=== PATIENT | female | born 1985 | race African-American/Black ===

== ENCOUNTER 2017-03-07 19:09 | Emergency (ER) | payer SELFPAY ==
[~2017-03-07] VITALS: Ht 170.2 cm; Wt 56.0 kg
[2017-03-07 23:30] VITALS: BP 126/77
== END 2017-03-08 11:48 | disposition home or self-care (01) ==
LOC: ER 19:09
DX: L03.211 Cellulitis of face (principal); Z98.890 Other specified postprocedural states
CPT/HCPCS: 99283

== ENCOUNTER 2017-05-16 16:56 | Emergency (ER) | payer BC ==
[~2017-05-16] VITALS: Ht 170.2 cm; Wt 59.0 kg
[2017-05-16] MEDS ORDERED: KETOROLAC 60MG/2ML VIAL IM ONE (20:00)
[2017-05-16 21:00] VITALS: BP 122/80
== END 2017-05-16 21:10 | disposition home or self-care (01) ==
LOC: ER 19:57
DX: M94.0 Chondrocostal junction syndrome [Tietze] (principal); Z98.890 Other specified postprocedural states
CPT/HCPCS: 71020; 81025; 93005; 96372; 99284; J1885

== ENCOUNTER 2019-12-28 16:27 | Emergency (ER) | payer BC, OTHER ==
[~2019-12-28] VITALS: Ht 167.6 cm; Wt 75.0 kg
[2019-12-28 17:03] VITALS: BP 140/74
[2019-12-28 21:30] LABS: CLARITY URINE CLOUDY (CLEAR); COLOR URINE DARK YELLOW (YELLOW); KETONES URINE 2+ (NEGATIVE); LEUKOCYTE ESTERASE URINE NEGATIVE (NEGATIVE); NITRITE URINE NEGATIVE (NEGATIVE); OCCULT BLOOD URINE 3+ (NEGATIVE); PROTEIN URINE TRACE (NEGATIVE); SPECIFIC GRAVITY URINE 1.032 (1.005-1.030)
== END 2019-12-28 23:23 | disposition home or self-care (01) ==
LOC: ER 16:27
DX: J06.9 Acute upper respiratory infection, unspecified (principal)
CPT/HCPCS: 81003; 81025; 87804; 99283

== ENCOUNTER 2023-09-05 12:24 | Emergency (ER) | payer BC, MEDICAID ==
[~2023-09-05] VITALS: Ht 167.6 cm; Wt 65.0 kg
[2023-09-05 12:32] VITALS: O2SAT 99
[2023-09-05] MEDS ORDERED: ACETAMINOPHEN 325MG TABLET PO ONE (12:45)
[2023-09-05] MEDS ORDERED: ONDANSETRON 4MG ODT PO ONE (13:00)
[2023-09-05 17:15] VITALS: BP 126/53; PULSE 81; RESP 16; TEMP 98
== END 2023-09-05 16:00 | disposition home or self-care (01) ==
LOC: ER 12:35
DX: S09.90XA Unspecified injury of head, initial encounter (principal); M25.512 Pain in left shoulder; M79.641 Pain in right hand; M79.642 Pain in left hand; M54.6 Pain in thoracic spine; V49.49XA Driver injured in collision with other motor vehicles in traffic accident, initial encounter; Y93.89 Activity, other specified; Y92.89 Other specified places as the place of occurrence of the external cause; Y99.8 Other external cause status
CPT/HCPCS: 99284; 70450; 81025; 73030; 73130; 72125; Q0162